=== PATIENT | female | born 2000 | race Caucasian/White ===

== ENCOUNTER 2024-04-22 09:15 | Outpatient (RCR) | payer MEDICAID, SELFPAY ==
--- NOTE | 2024-04-21 08:45 | XR_ITS ---
Examination: Nuclear medicine thyroid scan and uptake Exam date and time: April 21, 2024 0803 hours INDICATIONS: Difficulty swallowing shortness of breast lumps in the neck air loss, family history thyroid cancer, ultrasound examination thyroid July 06, 2022 mild thyromegaly TECHNIQUE AND FINDINGS: Oral administration 283 uCi I-123 6 hour 24 hour uptake values recorded as well as anterior bilateral obliques scans 6 hour uptake 40.6% normal range 6-24% 24 hour uptake 44.3% normal range 10-36% Homogeneous normal-appearing thyroid scan IMPRESSION: Normal study
[2024-04-21 08:53] LABS: HCG Qualitative,Urine Negative
== END 2024-04-27 23:59 | disposition home or self-care (01) ==
LOC: SNUC 09:15
PROVIDERS: PCP Nurse Practitioner Family; Referring Provider Nurse Practitioner Family; Visit Provider Nurse Practitioner Family
DX: R13.10 Dysphagia, unspecified (principal); E07.9 Disorder of thyroid, unspecified; Z32.00 Encounter for pregnancy test, result unknown
CPT/HCPCS: 78013; 81025; A9516

== ENCOUNTER 2024-06-10 19:53 | Emergency (ER) | payer MEDICAID, SELFPAY ==
[2024-06-10 19:54] VITALS: BMI 35.2
[2024-06-10 20:08] VITALS: BP 131/79; PULSE 95; RESP 18; TEMP 37.1; O2SAT 97
[2024-06-10] MEDS: CYCLObenzaPRINE 5 MG TABLET PO (20:29)
[2024-06-10] MEDS: NAPROXEN 250 MG TABLET 500 MG PO (20:29)
--- NOTE | 2024-06-10 21:19 | EDNOTE_ITS ---
ED Back Injury Pain RME/HPI General Chief Complaint: Back Pain/Injury Stated Complaint: LOWER BACK PAIN Time Seen by Provider: 06/10/24 20:18 Arrival date/time: 06/10/24 19:53 23F with no significant PMH presents to ED with low/mid back pain after she bent over to lift something and heard a pop. Patient denies fall/trauma, dysuria/hematuria, bowel/bladder incontinence and paresthesia. Limitations: no limitations Related Data Home Medications ?Medication ?Instructions ?Recorded ?Confirmed hydrocodone 5 mg-acetaminophen 325 1 tab PO Q6H PRN Pa in 09/15/21 09/15/21 mg tablet Allergies Allergy/AdvReac Type Severity Reaction Status Date / Time bee venom protein (honey bee) Allergy Severe REDNESS,SWE Verified 06/10/24 19:56 LLING Review of Systems Review of Systems Systems Reviewed: All systems reviewed, normal except as documented Constitutional Constitutional: Reports system reviewed and no additional complaints, except as documented, Denies fever(s) and Denies headache(s) ENT Ears, Nose, Mouth, and Throat: Denies disequilibrium and Denies headache(s) Cardiovascular Cardiovascular: Reports system reviewed and no additional complaints, except as documented, Denies chest pain and Denies dyspnea Respiratory Respiratory: Reports system reviewed and no additional complaints, except as d ocumented, Denies cough and Denies dyspnea Gastrointestinal Gastrointestinal: Reports system reviewed and no additional complaints, except as documented, Denies abdominal pain, Denies nausea and Denies vomiting Musculoskeletal Musculoskeletal: Reports as per HPI and Reports back pain Neurologic Neurologic: Reports system reviewed and no additional complaints, except as documented, Denies confusion, Denies disequilibrium and Denies headache(s) Psychiatric Psychiatric: Denies confusion Past Medical History Past Medical History NEUROLOGIC: Negative Neurological Disorders or Seizures CARDIAC: Positive Hypertension (with pregnacy #1 on meds); Negative Cardiac Disorders or Congestive Heart Failure RESPIRATORY: Positive Asthma; Negative Chronic Obstructive Pulmonary Disease (COPD) GASTROINTESTINAL: Negative Gastrointestinal Disorders or Hepatitis GENITOURINARY: Negative Genitourinary Disorders or Renal Disease REPRODUCTIVE: Negative Endometriosis, Pelvic Inflammatory Disease, Previous Pregnancies or Uterine Prolapse MUSCULOSKELETAL: Negative Musculoskeletal Disorders ENDOCRINE: Negative Endocrine Disorders, Diabetes Mellitus Type 1 or Diabetes Mellitus Type 2 HEMATOLOGIC: Negative Blood Disorders or Sickle Cell Disease OTHER HISTORY: Negative Hospitalization, Autoimmune Disease, Down Syndrome, Developmental Delay, Shingles, Falls, Blood Transfusions, Blood Transfusion Reaction, Anesthesia Reactions, Organ Transplant, Chemotherapy, Radiation Therapy, Hyperbaric Therapy, MRSA, VRSA, Vancomycin-Resistant Enterococci, Human Immunodeficiency Virus (HIV), Chicken Pox, Measles, Mumps, Rubella ([place] Measles), Pertussis, Clostridium Difficile or Cancer Family History FAMILY HISTORY: Positive Family Cancer; Negative Family Psychiatric Problems, Family Respiratory Disorders, Family Cardiac Disorders, Family Gastrointestinal Problems, Family Surgery or Family Anesthesia Reaction Surgical History SURGICAL: Positive Section; Negative Organ Transplant Social History SMOKING STATUS: Never smoker SECOND HAND EXPOSURE: No ED Exam General Limitations: Present no limitations General appearance: Present alert and in no apparent distress Head Head exam: Present atraumatic Eye Eye exam: Present normal appearance, PERRL and EOMI ENT ENT exam: Present normal exam, normal oropharynx and mucous membranes moist Neck Neck exam: Present normal inspection, full ROM and trachea midline Chest Chest inspection: Present normal inspection and symmetric chest wall rise Respiratory Respiratory exam: Present normal lung sounds bilaterally Cardiovascular Cardiovascular exam: Present regular rate, normal rhythm and normal heart sounds Abdominal Exam Abdominal exam: Present soft and normal bowel sounds Extremities Exam Extremities exam: Present normal inspection and full ROM Back Exam Back exam: Present normal inspection and full ROM Neurological Exam Neurological exam: Present alert, oriented X3 and CN II-XII intact Psychiatric Psychiatric exam: Present normal affect and normal mood Skin Skin exam: Present warm, dry, intact and normal color Course Quality Measures none Orders Category Date Time Status CYCLObenzaPRINE [Flexeril] Med 06/10/24 20:18 Discontinued 5 mg PO X1 ONE Naproxen [Naprosyn] Med 06/10/24 20:18 Discontinued 500 mg PO X1 ONE Vital Signs Vital signs: Vital Signs Temperature 98.7 F 06/10/24 20:08 Pulse Rate 95 06/10/24 20:08 Respiratory Rate 18 06/10/24 20:08 Blood Pressure 131/79 H 06/10/24 20:08 Pulse Oximetry (%) 97 06/10/24 20:08 Oxygen Delivery Method Room Air 06/10/24 20:08 O2 at 97% on RA and WNLs Back Pain / Injury MDM Narrative MDM Narrative:: 23F with no significant PMH presents to ED with low/mid back pain after she bent over to lift something and heard a pop. Patient denies fall/trauma, dysuria/hematuria, bowel/bladder incontinence and paresthesia. Physical exam reveals no midline back tenderness. Gait normal. Patient is afebrile, calm, and alert. Likely strain. Patient data External records reviewed:: [facility] previous records Clinical information provided by:: patient Social determinants that could affect healthcare access:: none Patient has the following chronic illnesses:: none How is presenting disease/condition affected by chronic disease/condition?: no chronic disease Evaluation data The following diagnostics were reviewed and interpreted by me:: other (specify) (none) Lab and/or radiology exams considered but not ordered:: not ordered Interpretation Summary: n/a Medications / Prescriptions Medications or Prescriptions considered but not ordered:: ordered Medication administrations:: Medication Administration History Discontinued Medications Cyclobenzaprine HCl (Cyclobenzaprine 5 Mg Tablet) 5 mg PO X1 ONE Stop: 06/10/24 20: Last Admin: 06/10/24 20:29 Dose: 5 mg Documented By: Naproxen (Naproxen 250 Mg Tablet) 500 mg PO X1 ONE Stop: 06/10/24 20:19 Last Admin: 06/10/24 20:29 Dose: 500 mg Documented By: above Consultations Consultation(s) initiated? (list below): No Diagnosis Differential diagnosis back pain/injury: lumbar radiculopathy, sciatica, strain of lumbar region (mid back), renal colic, pyelonephritis, thoracic back pain, AAA and discitis Most likely diagnosis given after review of the tests above:: strain of mid back Admission Indicated Admission indicated?: not indicated Admission Request Was there a request for admission?: No Disposition Plan Disposition Plan: Discharge Discharge Attestation Discharge Attestation: The patient and all family members were given an opportunity to ask questions and understood the discharge instructions. Discharge instructions specifically effects, indications for sooner follow up or return to the emergency department, and the expected course of current diagnosis. Patient condition: Stable Discharge Plan Plan Patient Disposition: HOME (Self Care) Disposition Comment: Stable Prescriptions/Referrals Prescriptions/Med Rec: No Action hydrocodone-acetaminophen 5-325 mg tablet 1 tab PO Q6H PRN (Reason: Pain) Patient Comments: TAKE 1 TABLET BY MOUTH EVERY 6 HOURS NEEDED FOR PAIN Problem List Clinical Impression: Strain of mid-back Patient/Caregiver Discharge Instructions Education Materials: ED Back Sprain/Strain Additional Instructions: Please follow-up with PCP within 24-48 hours and return immediately if symptoms worsen. If problem persists, recommend outpatient PT and/or MRI follow-up. In the meantime, rest, use ice/heat, and/or compression. Ibuprofen/Tylenol can be used simultaneously for greater fever/pain control. Print Language: Hong Konger Stand Alone Forms: Patient Portal Info Letter PA/COMMUNITY SPECIALIST Supervising Physician OMAR/SERGIO Supervising Physician: Dr. Ibarra
== END 2024-06-10 20:40 | disposition home or self-care (01) ==
LOC: SERX 20:37
PROVIDERS: Emergency Provider Emergency Medicine; PCP Nurse Practitioner Family
DX: S29.012A Strain of muscle and tendon of back wall of thorax, initial encounter (principal); X58.XXXA Exposure to other specified factors, initial encounter
CPT/HCPCS: 99282; A9270

== ENCOUNTER 2024-06-15 20:15 | Emergency (ER) | payer MEDICAID, SELFPAY ==
--- NOTE | 2024-06-15 21:19 | XR_ITS ---
EXAMINATION: Ankle, right 3 views . Technique: Ankle AP, oblique, lateral 3 views Date and time of exam: June 15, 20242021 hours INDICATIONS: Patient fell 2 days ago with intrathecal, ankle pain. FINDINGS: No ankle fracture or dislocation Lateral malleolar soft tissue swelling IMPRESSION: No ankle fracture or dislocation
--- NOTE | 2024-06-15 21:19 | EDNOTE_ITS ---
Lower Extremity Injury RME/HPI General Chief Complaint: Ankle/Foot Injury Stated Complaint: RIGHT ANKLE INJURY Time Seen by Provider: 06/15/24 20:35 Arrival date/time: 06/15/24 20:15 Limitations: no limitations RME / HPI RME / HPI Narrative: 23-year-old female presents for evaluation of right ankle pain x 2 days. She reports that she tripped and fell in a hole while playing with her kids at the park on Saturday. Denies head trauma, LOC, additional injury. Denies history of right ankle injury. Denies foot pain. Denies numbness, tingling. She reports taking ibuprofen for pain approximately 2 hours prior to arrival to the ED. Related Data Home Medications ?Medication ?Instructions ?Recorded ?Confirmed hydrocodone 5 mg-acetaminophen 325 1 tab PO Q6H PRN Pa in 09/15/21 09/15/21 mg tablet Allergies Allergy/AdvReac Type Severity Reaction Status Date / Time bee venom protein (honey bee) Allergy Severe REDNESS,SWE Verified 06/15/24 20:16 LLING Review of Systems Constitutional Constitutional: Denies fever(s), Denies frequent falls and Denies headache(s) Eyes Eyes: Denies change in vision ENT Ears, Nose, Mouth, and Throat: Denies headache(s) and Denies neck pain Cardiovascular Cardiovascular: Denies chest pain, Denies dyspnea and Denies leg edema Respiratory Respiratory: Denies dyspnea and Denies wheezing Gastrointestinal Gastrointestinal: Denies abdominal pain, Denies nausea and Denies vomiting Musculoskeletal Musculoskeletal: Reports abnormal gait, Reports arthralgias (right ankle ), Denies back pain, Reports joint swelling (acute right ankle ), Denies neck pain, Denies numbness and Denies tingling Integumentary/Breasts Skin/Breast: Denies wounds Neurologic Neurologic: Reports abnormal gait, Denies frequent falls, Denies headache(s), Denies numbness and Denies tingling Allergic/Immunologic Allergic/Immunologic: Denies wheezing Past Medical History Past Medical History NEUROLOGIC: Negative Neurological Disorders or Seizures CARDIAC: Positive Hypertension (with pregnacy #1 on meds); Negative Cardiac Disorders or Congestive Heart Failure RESPIRATORY: Positive Asthma; Negative Chronic Obstructive Pulmonary Disease (COPD) GASTROINTESTINAL: Negative Gastrointestinal Disorders or Hepatitis GENITOURINARY: Negative Genitourinary Disorders or Renal Disease REPRODUCTIVE: Negative Endometriosis, Pelvic Inflammatory Disease, Previous Pregnancies or Uterine Prolapse MUSCULOSKELETAL: Negative Musculoskeletal Disorders ENDOCRINE: Negative Endocrine Disorders, Diabetes Mellitus Type 1 or Diabetes Mellitus Type 2 HEMATOLOGIC: Negative Blood Disorders or Sickle Cell Disease OTHER HISTORY: Negative Hospitalization, Autoimmune Disease, Down Syndrome, Developmental Delay, Shingles, Falls, Blood Transfusions, Blood Transfusion Reaction, Anesthesia Reactions, Organ Transplant, Chemotherapy, Radiation Therapy, Hyperbaric Therapy, MRSA, VRSA, Vancomycin-Resistant Enterococci, Human Immunodeficiency Virus (HIV), Chicken Pox, Measles, Mumps, Rubella ([place] Measles), Pertussis, Clostridium Difficile or Cancer Family History FAMILY HISTORY: Positive Family Cancer; Negative Family Psychiatric Problems, Family Respiratory Disorders, Family Cardiac Disorders, Family Gastrointestinal Problems, Family Surgery or Family Anesthesia Reaction Surgical History SURGICAL: Positive Section; Negative Organ Transplant Social History SMOKING STATUS: Never smoker SECOND HAND EXPOSURE: No ED Exam General Limitations: Present no limitations General appearance: Present alert and in no apparent distress Head Head exam: Present atraumatic and normocephalic Eye Eye exam: Present normal appearance and EOMI ENT ENT exam: Present mucous membranes moist Neck Neck exam: Present normal inspection and full ROM; Absent tenderness Expanded Neck Exam Neck exam focused ED: Absent midline tenderness or paraspinal tenderness Chest Chest inspection: Present normal inspection and symmetric chest wall rise Respiratory Respiratory exam: Absent respiratory distress Cardiovascular Cardiovascular exam: Present regular rate Abdominal Exam Abdominal exam: Present soft; Absent distention Expanded Lower Extremity Exam Ankle exam: Present tenderness (lateral right ankle tenderness and mild edema) and swelling; Absent abrasion, ecchymosis or deformity Foot/toe exam: Present normal inspection and full ROM; Absent tenderness at base of 5th metatarsal Neurovascular/Tendon exam: Present normal capillary refill; Absent pulse deficit Gait: not tested/not observed Back Exam Back exam: Present normal inspection and full ROM; Absent tenderness Neurological Exam Neurological exam: Present alert Psychiatric Psychiatric exam: Present normal affect Skin Skin exam: Present warm and dry Course Quality Measures none Orders Category Date Time Status XR ankle comp RT min 3V Stat Exams 06/15/24 21:19 Completed Extremity Injury, Lower MDM Narrative MDM Narrative:: 23-year-old female presented with right ankle pain after a eversion injury. Vital signs stable. Mild tenderness and edema lateral right ankle. X-ray negative for dislocation and fracture. Patient was put in a premade splint and advised to continue use crutches for the next several days. Advised to rest, ice, elevate. Patient agreeable with plan to follow-up with primary care in the next 2 to 3 days for reevaluation and possible Ortho referral if her symptoms are not improved. Patient stable at time of discharge. Patient data External records reviewed:: [facility] previous records Clinical information provided by:: patient Social determinants that could affect healthcare access:: none Patient has the following chronic illnesses:: None reported. How is presenting disease/condition affected by chronic disease/condition?: no chronic disease Evaluation data The following diagnostics were reviewed and interpreted by me:: radiology exam(s) Lab and/or radiology exams considered but not ordered:: X-ray ordered. Interpretation Summary: No acute fracture or dislocation right ankle. Medications / Prescriptions Medications or Prescriptions considered but not ordered:: Patient declined. Medication administrations:: Patient declined. Consultations Consultation(s) initiated? (list below): No Diagnosis Extremity Injury, Lower Differential Diagnosis: ankle sprain and strain, fracture of toe and ankle fracture Most likely diagnosis given after review of the tests above:: Right ankle sprain Admission Indicated Admission indicated?: not indicated Admission Request Was there a request for admission?: No Disposition Plan Disposition Plan: Discharge Discharge Attestation Discharge Attestation: The patient and all family members were given an opportunity to ask questions and understood the discharge instructions. Discharge instructions specifically effects, indications for sooner follow up or return to the emergency department, and the expected course of current diagnosis. Patient condition: Stable Discharge Plan Plan Patient Disposition: HOME (Self Care) Disposition Comment: stable Prescriptions/Referrals Prescriptions/Med Rec: No Action hydrocodone-acetaminophen 5-325 mg tablet 1 tab PO Q6H PRN (Reason: Pain) Patient Comments: TAKE 1 TABLET BY MOUTH EVERY 6 HOURS NEEDED FOR PAIN Referrals: Viktoriya Espinoza [employer] [employer] [Primary Care Provider] - In 1 week Problem List Clinical Impression: Ankle sprain and strain Patient/Caregiver Discharge Instructions Other Activity Instructions:: Continue to rest, ice, elevate your right ankle. Take Tylenol or Motrin as needed for pain. Return to the ED if your symptoms worsen or change. Education Materials: ED RICE Print Language: Swedish Stand Alone Forms: Radha Award Info., Patient Portal Info Letter PA/SERGIO Supervising Physician PA/SERGIO Supervising Physician: Dr. Johnson
== END 2024-06-15 23:09 | disposition home or self-care (01) ==
PROVIDERS: Emergency Provider Emergency Medicine; PCP Nurse Practitioner Family
DX: S93.401A Sprain of unspecified ligament of right ankle, initial encounter (principal); W01.0XXA Fall on same level from slipping, tripping and stumbling without subsequent striking against object, initial encounter; Y92.830 Public park as the place of occurrence of the external cause; Y99.8 Other external cause status
CPT/HCPCS: 73610; 99283

== ENCOUNTER 2024-08-02 01:42 | Emergency (ER) | payer MEDICAID, SELFPAY ==
[2024-08-02 01:42] VITALS: BP 138/91; PULSE 80; RESP 18; TEMP 36.9; O2SAT 96
[2024-08-02 01:43] VITALS: BMI 35.0
[2024-08-02 02:38] LABS: Strep A Rapid Negative (Negative)
--- NOTE | 2024-08-02 02:42 | PD.EDDENTL ---
ED Dental RME/HPI General Chief complaint: Dental/Oral/Throat Stated complaint: SORE THROAT Time Seen by Provider: 08/02/24 02:05 Arrival date/time: 08/02/24 01:42 23 year old female present to emergency room with c/o of sore throat for 3 days, hx of strep LOCATION: posterior oral pharynx SEVERITY: Symptoms are described as being severe with limitations on activities of daily living QUALITY: Symptoms are described as being dull or achy CONTEXT: The patient is unable to identify any inciting events. DURATION/TIMING: The symptoms started approximately 4 day ago and have been constant this then. ASSOCIATED SYMPTOMS: The patient is unable to identify any other associated symptoms. MODIFYING FACTORS: worse with swallowing PERTINENT ROS: denies any food or liquids getting stuck, denies any generalized weakness, denies any trauma, no chest pain, no abdominal pain, no rashes, no joint swelling REVIEW OF SYSTEMS: See History of Present Illness - with the exception of those mentioned in the history of present illness, all other systems reviewed and reported as negative GENERAL: In general the patient is awake, interactive, in an emergency department gurney. HEAD/EYES/EARS/NOSE/THROAT: normo-cephalic, atraumatic, mucus membranes are moist, anicteric, palpebral conjunctiva is pink, trachea is midline. CARDIOVASCULAR: regular rate and regular rhythm, no murmurs, heart sounds are not distant, strong pulses in all four extremities that are equal and symmetric bilateral upper and lower extremities, normal capillary refill. CHEST/PULMONARY: normal chest rise and fall, good air movement, clear to auscultation bilaterally, normal inspiratory to expiratory ratios without evidence of respiratory distress. NECK: No midline/Paraspinal tenderness, no step off ROM/Strenght intact No Kernig and bruzinski sign. No trauma ABDOMEN: soft, not tender, no masses appreciated BACK: normal range of motion without pain. NEUROLOGICAL: cranio-facial features are symmetric, moves all four extremities equally without obvious limitations or weakness. EXTREMITY: no tenderness to palpation over the long bones or large joints of the bilateral upper and lower extremities, no joint swelling, no joint erythema, no signs of trauma, no unilateral leg swelling and no peripheral edema. SKIN: warm, dry, well-perfused, no jaundice, no rash, no telangiectasias or petechia. PSYCH: calm, cooperative, no evidence of psychosis or agitation Related Data Home Medications ?Medication ?Instructions ?Recorded ?Confirmed hydrocodone 5 mg-acetaminophen 325 1 tab PO Q6H PRN Pain 09/15/21 09/15/21 mg tablet Allergies Allergy/AdvReac Type Severity Reaction Status Date / Time bee venom protein (honey bee) Allergy Severe REDNESS,SWE Verified 08/02/24 01:44 LLING Course Course Course Narrative: Patient presenting with sore throat consistent with viral pharyngitis.?? The patient did not have trismus, hot potato voice, uvula deviation, unilateral tonsillar swelling, toxic appearance, drooling or pain with movement of the trachea to suggest peritonsillar abscess or epiglottitis.? No evidence of bacterial infections including peritonsillar abscess, retropharyngeal abscess, epiglottitis.? Rapid strep was obtained and was negative.? Patient advised to continue ibuprofen and Tylenol at home.? Further symptomatic measures discussed. Advised patient on supportive therapies, including using a cool-mist vaporizer/humidifer/steam from hot showers, limit talking, OTC throat lozenges and mouthwashes, gargling w/ warm saltwater, advancement of fluids as tolerated, nasal saline sprays, rest, OTC acetaminophen or ibuprofen as directed prn for pain control, frequent handwashing, and boiling/disposing of contaminated toothbrushes.? Quality Measures none Orders Category Date Time Status Strep A Rapid Stat Lab 08/02/24 01:58 Completed Vital Signs Vital signs: Vital Signs Temperature 98.4 F 08/02/24 01:42 Pulse Rate 80 08/02/24 01:42 Respiratory Rate 18 08/02/24 01:42 Blood Pressure 138/91 H 08/02/24 01:42 Pulse Oximetry (%) 96 08/02/24 01:42 Oxygen Delivery Method Room Air 08/02/24 01:42 Dental / Oral Patient data External records reviewed:: [facility] previous records Clinical information provided by:: patient Social determinants that could affect healthcare access:: none Patient has the following chronic illnesses:: n/a How is presenting disease/condition affected by chronic disease/condition?: no chronic disease Evaluation data The following diagnostics were reviewed and interpreted by me:: lab results Lab and/or radiology exams considered but not ordered:: na Interpretation Summary: strep negative Medications / Prescriptions Medications or Prescriptions considered but not ordered:: n/a Medication administrations:: n/a Consultations Consultation(s) initiated? (list below): No Diagnosis Dental Differential Diagnosis: other (strep, vs viral pharyngitis ) Most likely diagnosis given after review of the tests above:: pharynitis Admission Indicated Admission indicated?: indicated Admission Request Was there a request for admission?: No Disposition Plan Disposition Plan: Discharge Discharge Attestation Discharge Attestation: The patient and all family members were given an opportunity to ask questions and understood the discharge instructions. Discharge instructions specifically effects, indications for sooner follow up or return to the emergency department, and the expected course of current diagnosis. Patient condition: Stable Discharge Plan Plan Patient Disposition: HOME (Self Care) Health Concerns: Follow with PMD as directed Take tylenol or motrin as need Return to ED if sx worsen Prescriptions/Referrals Prescriptions/Med Rec: No Action hydrocodone-acetaminophen 5-325 mg tablet 1 tab PO Q6H PRN (Reason: Pain) Patient Comments: TAKE 1 TABLET BY MOUTH EVERY 6 HOURS NEEDED FOR PAIN Problem List Clinical Impression: Pharyngitis, acute Patient/Caregiver Discharge Instructions Education Materials: Self-Care for Sore Throats Print Language: Angolan Stand Alone Forms: Radha Award Info., Patient Portal Info Letter
== END 2024-08-02 03:38 | disposition home or self-care (01) ==
PROVIDERS: Physician Assistant; Emergency Provider Emergency Medicine; PCP Nurse Practitioner Family
DX: J02.9 Acute pharyngitis, unspecified (principal)
CPT/HCPCS: 87651; 99283